=== PATIENT | female | born 1940 | race Hispanic/Latino ===

== ENCOUNTER → 2022-08-30 | Outpatient (CLI) | payer MEDICARE, OTHER ==
[~2022-08-30] MED LIST: REGADENOSON 0.4 MG/5 ML SYR IV ONE
== END ==
LOC: NM 09:00
PROVIDERS: ATTEND Internal Medicine
DX: R07.9 Chest pain, unspecified (principal)
CPT/HCPCS: 78452; 93017; 93306; A9502; J2785

== ENCOUNTER 2022-09-06 05:39 | Observation (INO) | payer MEDICARE, OTHER ==
[2022-09-05 15:29] LABS: BASOPHILS % 0.4 % (0.0-1.0); EOSINOPHILS # (AUTO) 0.2 (0.0-0.4); EOSINOPHILS % 4.6 % (0.0-6.0); HEMOGLOBIN 11.2 g/dL (12.0-16.0); LYMPHOCYTES # (AUTO) 0.7 (1.0-3.2); LYMPHOCYTES % 14.2 % (18.0-39.1); MEAN CORPUSCULAR HGB CONC 32.9 g/dL (31-35); MEAN CORPUSCULAR VOLUME 91.2 fL (81-99); MONOCYTES # (AUTO) 0.6 (0.2-0.8); MONOCYTES % 13.8 % (4.4-11.3); NEUTROPHILS # (AUTO) 3.1 (2.1-6.9); NEUTROPHILS % 66.8 % (38.7-80.0); PLATELET COUNT 196 x10e3/uL (140-360); RED BLOOD COUNT 3.73 x10e6/uL (3.6-5.1)
[~2022-09-06 05:39] MED LIST changes: +ALENDRONATE SOD70 MG PO; +AMLODIPINE BESY10 MG PO; +ATORVASTATIN CA20 MG PO; +CALCIUM ACETAT667 M1 PO; +CALCIUM ACETAT667 MG PO; +GLUCOSAMINE1000 MG PO; +GLYCOSAMINE; +LEVOTHYROXINE50 MCG PO; +LOSARTAN POTAS100 MG PO; +LOSARTAN POTASS25 MG PO; +MAGNESIUM OXID400 MG PO; -REGADENOSON 0.4 MG/5 ML SYR IV ONE; +TURMERIC COMPL1 EACH PO; +TURMERIC500 M1; +VITAMIN B-121000 MC2 PO; +VITAMIN B-121000 MCG PO; +VITAMIN C1000 MG PO; +VITAMIN C500 MG PO
[2022-09-06] MEDS ORDERED: ZOLPIDEM TARTRATE 5 MG TAB PO PRN (08:45)
[2022-09-06] MEDS ORDERED: HYDROCODONE/APAP 5MG-325MG TAB PO PRN (08:45)
[2022-09-06] MEDS ORDERED: DIPHENHYDRAMINE HCL INJ 50 MG/ML VIAL IV PRN (08:45)
[2022-09-06] MEDS ORDERED: ONDANSETRON HCL INJ 2MG/ML 2ML 2 MG/ML VIAL IV PRN (08:45)
[2022-09-06] MEDS ORDERED: DOCUSATE SODIUM 100 MG CAP PO PRN (08:45)
[2022-09-06] MEDS ORDERED: ACETAMINOPHEN 650 MG SUPP PR PRN (08:45)
[2022-09-06] MEDS: CELECOXIB 100 MG CAP PO SCH ×2 (09:00→17:01)
[2022-09-06] MEDS: ASPIRIN 325 MG TAB PO SCH ×2 (09:00→17:01)
[2022-09-06 12:00] VITALS: BP 137/69
[2022-09-06] MEDS ORDERED: MIDAZOLAM HCL 2 MG/2 ML VIAL ONE (12:23)
[2022-09-06] MEDS ORDERED: FENTANYL CITRATE/PF 100MCG/2 ML INJ ONE (12:23)
[2022-09-06] MEDS ORDERED: KETOROLAC TROMETHAMINE 30 MG/ML VIAL ONE (12:49)
[2022-09-06] MEDS ORDERED: PROPOFOL IV EMULSION 10 MG/ML 20 ML VIAL ONE (12:49)
[2022-09-06] MEDS ORDERED: POVIDONE IODINE 0.05% 0.05 % ML PO ONE (12:49)
[2022-09-06] MEDS ORDERED: ONDANSETRON HCL INJ 2MG/ML 2ML 2 MG/ML VIAL ONE (12:49)
[2022-09-06] MEDS ORDERED: LIDOCAINE HCL 2% LOCAL INJ 5 ML SDV VIAL INJ ONE (12:49)
[2022-09-06] MEDS ORDERED: SEVOFLURANE INHAL SOLN 250 ML PEN BTL ONE (12:49)
[2022-09-06] MEDS ORDERED: DEXAMETHASONE SOD PHOS INJ 4 MG/ML SDV ONE (12:49)
[2022-09-06] MEDS ORDERED: DEXAMETHASONE SOD PHOS 10 MG/1 ML VIAL ONE (12:55)
[2022-09-06] MEDS ORDERED: ROPIVACAINE 0.5% 5 MG/ML 30 ML SDV ONE (12:55)
[2022-09-06] MEDS ORDERED: ACETAMINOPHEN 1000 MG/100 ML IV PRN (14:00)
[2022-09-06] MEDS: SODIUM CHLORIDE 0.9% 1000ML 1,000 ML IV SCH ×2 (14:00→17:01)
[2022-09-06 16:00] VITALS: BP 139/56
[2022-09-06 19:54] VITALS: BP 155/63
[2022-09-07] VITALS: BP 136/63
[2022-09-07 04:00] VITALS: BP 141/61
[2022-09-07 05:01] LABS: HEMATOCRIT 30.2 % (34.2-44.1); HEMOGLOBIN 10.2 g/dL (12.0-16.0)
[2022-09-07] MEDS: SODIUM CHLORIDE 0.9% 1000ML 1,000 ML IV SCH (05:58)
[2022-09-07 08:32] VITALS: BP 125/89
[2022-09-07] MEDS: CELECOXIB 100 MG CAP PO SCH (09:53)
[2022-09-07] MEDS: ASPIRIN 325 MG TAB PO SCH (09:53)
[2022-09-07] MEDS ORDERED: ONDANSETRON HCL 4 MG ORAL DISINTEGRATING TAB PO PRN (11:57)
== END 2022-09-07 11:57 | disposition home or self-care (01) ==
LOC: OR 05:39 → PACU V 09:21 → MED/SURG3 11:55
PROVIDERS: ADMIT Specialist; ATTEND Specialist
DX: M17.11 Unilateral primary osteoarthritis, right knee (principal); I10 Essential (primary) hypertension
CPT/HCPCS: 27447; 36415 ×3; 71046; 73560; 82948 ×2; 85014; 85018; 85025; 86850; 86900; 86920; 93005; 94799; 97110; 97116 ×2; 97161; 97530 ×3; C1713 ×2; C1776 ×2; G0378 ×2; J0131; J0690 ×2; J1100 ×2; J1885; J2001; J2250; J2405; J2704; J2795; J3010; J7030 ×2

== ENCOUNTER 2022-09-11 15:37 | Emergency (ER) | payer MEDICARE, OTHER ==
[~2022-09-11] VITALS: Ht 160 cm; Wt 50.8 kg
== END 2022-09-11 16:56 | disposition home or self-care (01) ==
LOC: ER 16:28
DX: G89.18 Other acute postprocedural pain (principal); Z96.651 Presence of right artificial knee joint; I10 Essential (primary) hypertension; E78.5 Hyperlipidemia, unspecified
CPT/HCPCS: 99282

== ENCOUNTER → 2024-09-13 | Outpatient (REF) | payer MEDICARE | LOC: CT 08:52 | PROVIDERS: ATTEND Family Medicine | DX: R91.1 Solitary pulmonary nodule (principal) | CPT/HCPCS: 71250 ==